=== PATIENT | male | born 1970 | race Caucasian/White ===

== ENCOUNTER 2025-05-20 07:19 | Emergency (ER) | payer OTHER, SELFPAY ==
[2025-05-20 07:26] VITALS: BP 154/97
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
[2025-05-20] MEDS: TORADOL 30 MG IM (09:13)
== END 2025-05-20 09:32 | disposition home or self-care (01) ==
LOC: EMR 07:19
PROVIDERS: EMERGENCY PHYSICIAN Emergency Medicine
DX: S39.012A Strain of muscle, fascia and tendon of lower back, initial encounter (principal); X58.XXXA Exposure to other specified factors, initial encounter
CPT/HCPCS: 99284; 96372